=== PATIENT | female | born 1950 | race Caucasian/White ===

== ENCOUNTER 2018-02-17 05:55 | Outpatient (CLI) | payer MEDICARE ==
[~2018-02-17] VITALS: Ht 147.3 cm; Wt 84.8 kg
[~2018-02-17 05:55] MED LIST: ACHD5005 PO; ASP325T PO; CLOP75TA PO; DULO60CA6 PO; LEVO500T69 PO; LEVOTHY; LEVOTHYROXINE; LISI20TA PO; METO100T5 PO; METO50TA7 PO; PIOG45TA PO; PRAV40TA PO
[2018-02-18] MEDS ORDERED: LEVO175T5 PO (15:44)
[2018-02-18] MEDS ORDERED: AMLO5TAB2 PO (15:44)
[2018-02-18] MEDS ORDERED: IBUP-1780 PO (15:44)
[2018-02-18] MEDS ORDERED: GLIM2TAB PO (15:44)
[2018-02-18] MEDS ORDERED: LISI40TA PO (15:44)
[2018-02-18] MEDS ORDERED: METO100T12 PO (15:44)
[2018-02-18] MEDS ORDERED: DULO30CA48 PO (15:44)
[2018-02-18] MEDS ORDERED: LAMO25TA PO (15:44)
[2018-02-18] MEDS ORDERED: ROSU20TA30 PO (15:44)
[2018-02-18] MEDS ORDERED: MECL-106 PO (15:44)
[2018-03-19] MEDS ORDERED: LAMO100T PO (08:51)
[2018-03-19] MEDS ORDERED: LEVO125T6 PO (08:51)
== END 2018-02-18 15:54 ==
LOC: PREOP 05:55
PROVIDERS: ATTEND Specialist
DX: Z01.818 Encounter for other preprocedural examination (principal)

== ENCOUNTER 2018-02-20 08:31 | Day surgery (SDC) | payer MEDICARE, MEDICAID ==
[~2018-02-20] VITALS: Ht 147.3 cm; Wt 84.8 kg
[~2018-02-20 08:31] MED LIST changes: +AMLO5TAB2 PO; +DULO30CA48 PO; +GLIM2TAB PO; +IBUP-1780 PO; +LAMO25TA PO; +LEVO175T5 PO; +LISI40TA PO; +MECL-106 PO; +METO100T12 PO; +ROSU20TA30 PO
[2018-02-20 09:20] VITALS: BP 148/84
[2018-02-20] MEDS ORDERED: EPINEPHrine INJECTION 1 MG/ML AMP INJ ONE (09:30)
[2018-02-20] MEDS ORDERED: LIDOCAINE PF 1% 2 ML AMP IR PRN (09:30)
[2018-02-20] MEDS ORDERED: TIMOLOL MALEATE 0.5% 5 ML (TIMOPTIC) BTL OU PRN (09:30)
[2018-02-20] MEDS ORDERED: POVIDONE (BETADINE) OPHTH SOLN 5% 30 ML OP ONE (09:30)
[2018-02-20] MEDS ORDERED: VANCOMYCIN/BSS (COMPOUNDED) 10 MG/ML SYR OP ONE (09:30)
[2018-02-20] MEDS: TETRACAINE 0.5% OPHTH SOLN 4 ML BTL (SINGLE DOSE ONLY) OU PRN ×4 (09:37→10:03)
[2018-02-20] MEDS: CYCLOPENTOLATE 1% (CYCLOGYL) 2 ML DROPS OP SCH ×3 (09:43→10:04)
[2018-02-20] MEDS: PHENYLEPHRINE 10% OPHTH (NEO-SYN) 5 ML BTL OU SCH ×3 (09:43→10:03)
[2018-02-20] MEDS ORDERED: MIDAZOLAM 2 MG/2 ML (VERSED) VIAL ONE (09:56)
--- NOTE | 2018-02-20 10:03 | Ophthalmologist Pre-Op Note ---
Pre-Operative Progress Note H&P Reviewed The H&P was reviewed, patient examined and no changes noted. Date H&P Reviewed: February 20, 2018 Time H&P Reviewed: 10:03 Pre-Op Dx Cataract, Right Eye BOLIVAR SHINE MD February 20, 2018 10:03
[2018-02-20 10:46] VITALS: BP 149/79
--- NOTE | 2018-02-20 10:47 | Ophthalmology Operative Report ---
Cataract removal/placement IOL PREOPERATIVE DIAGNOSIS: Cataract Right Eye POSTOPERATIVE DIAGNOSIS: Cataract Right Eye PROCEDURE: Cataract removal and placement of posterior chamber implant, right eye SURGEON: Asif Shine ANESTHESIA: Topical with sedation COMPLICATIONS: None ESTIMATED BLOOD LOSS: Minimal DESCRIPTION OF PROCEDURE: After proper informed consent was obtained, the patient, a 67 female, was taken to the Operating Room and the right eye was anesthetized with tetracaine. They right eye was then prepped and draped in the usual manner. A wire lid speculum was placed. A paracentesis was made at the left hand position. Preservative free lidocaine was injected into the anterior chamber followed by viscoelastic. A clear corneal incision was made in the temporal position. A capsulorrhexis was preformed and the central nuclear and cortical material were removed. The posterior capsule was polished and Reese 24.0 SN6CWS IOL was placed into the capsular bag. The residual viscoelastic was aspirated and balanced saline solution was injected into the anterior chamber. 0.1ml of Vancomycin (10mg/0.1ml ) was injected into the anterior chamber. The wound was checked and found to be water tight. The patient tolerated the procedure well without complications. ASIF SHINE MD February 20, 2018 10:46
--- NOTE | 2018-02-20 11:10 | Anesthesia-General Post-Op ---
MAC Patient Condition Mental Status/LOC: Same as Preop Cardiovascular: Satisfactory Nausea/Vomiting: Absent Respiratory: Satisfactory Pain: Controlled Complications: Absent Post Op Complications Complications None Follow Up Care/Instructions Patient Instructions None needed. Anesthesiology Discharge Order Discharge Order Patient is doing well, no complaints, stable vital signs, no apparent adverse anesthesia problems. No complications reported per nursing. MIKE HOLLAND CRNA February 20, 2018 11:10
[2018-03-19] MEDS ORDERED: LEVO125T6 PO (08:51)
[2018-03-19] MEDS ORDERED: LAMO100T PO (08:51)
== END 2018-02-20 10:46 | disposition home or self-care (01) ==
LOC: SDC 08:31
PROVIDERS: ATTEND Specialist
DX: E11.36 Type 2 diabetes mellitus with diabetic cataract (principal); I10 Essential (primary) hypertension; J44.9 Chronic obstructive pulmonary disease, unspecified; Z79.84 Long term (current) use of oral hypoglycemic drugs; Z79.899 Other long term (current) drug therapy

== ENCOUNTER → 2018-03-18 | Outpatient (CLI) | payer MEDICARE, MEDICAID ==
[~2018-03-18] MED LIST changes: +LAMO100T PO; +LEVO125T6 PO
== END ==
LOC: PREOP 06:20
PROVIDERS: ATTEND Specialist
DX: Z01.818 Encounter for other preprocedural examination (principal)

== ENCOUNTER 2018-03-20 08:39 | Day surgery (SDC) | payer MEDICARE, MEDICAID ==
[~2018-03-20] VITALS: Ht 147.3 cm; Wt 84.8 kg
[2018-03-20 09:00] VITALS: BP 152/81
[2018-03-20] MEDS ORDERED: VANCOMYCIN/BSS (COMPOUNDED) 10 MG/ML SYR OP ONE (09:15)
[2018-03-20] MEDS ORDERED: EPINEPHrine INJECTION 1 MG/ML AMP INJ ONE (09:15)
[2018-03-20] MEDS ORDERED: POVIDONE (BETADINE) OPHTH SOLN 5% 30 ML OP ONE (09:15)
[2018-03-20] MEDS ORDERED: TIMOLOL MALEATE 0.5% 5 ML (TIMOPTIC) BTL OU PRN (09:15)
[2018-03-20] MEDS ORDERED: LIDOCAINE PF 1% 2 ML AMP IR PRN (09:15)
[2018-03-20] MEDS: TETRACAINE 0.5% OPHTH SOLN 4 ML BTL (SINGLE DOSE ONLY) OU PRN ×4 (09:28→09:38)
[2018-03-20] MEDS: CYCLOPENTOLATE 1% (CYCLOGYL) 2 ML DROPS OP SCH ×3 (09:32→09:38)
[2018-03-20] MEDS: PHENYLEPHRINE 10% OPHTH (NEO-SYN) 5 ML BTL OU SCH ×3 (09:32→09:38)
--- OUTSIDE RECORDS SUMMARY | 2018-03-20 09:45 | XMS REPORT ---
Author Author JS MALONEY [facility] Company[facility] Address [address] [place] [address] Care Team Providers Care Tubular Riveter Name Role Phone JS MALONEY Unavailable PROBLEMS Type Condition ICD9-CM Code GZO11-OE Code Onset Dates Condition Status SNOMED Code Problem Obesity (BMI 30.0-34.9) E66.9 Active 695173021813143 Problem Type 2 diabetes mellitus without complication, without long-term current use of insulin E11.9 Active 185241745 Problem Benign essential hypertension I10 Active 5213908 Problem Hyperthyroidism E05.90 Active 17759322 Problem Bipolar 1 disorder F31.9 Active 489220986 Problem Neuropathy G62.9 Active 718542238 Problem Recurrent falls R29.6 Active 559861277 Problem Other hyperlipidemia E78.4 Active 84127910 Problem Hypothyroidism, unspecified type E03.9 Active 70402862 Problem Chronic fatigue R53.82 Active 20134146 Problem 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 Active 08280479 ALLERGIES No Information ENCOUNTERS Encounter Location Date Diagnosis [facility] [address] [id number], [place] [id number] Mar, [facility] [address] [address] [id number], [place] [id number] Mar, [facility] [address] [id number], [place] [id number] February, [facility] [address] [id number], [place] [id number] February, [facility] [address] [id number], [place] [id number] February, [facility] [address] [address] [id number], [place] [id number] February, Benign essential hypertension I10 [facility] [address] [id number], [place] [id number] February, Recurrent falls R29.6 ; Bipolar 1 disorder F31.9 ; Benign essential hypertension I10 ; Type 2 diabetes mellitus without complication, without long-term current use of insulin E11.9 ; Neuropathy G62.9 and 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 [facility] [address] [id number], [place] 704967063 February, Hypothyroidism, unspecified type E03.9 [facility] [address] [id number], [place] [id number] February, 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 [facility] [address] [id number], [place] [id number] February, Hypothyroidism, unspecified type E03.9 ; Chronic fatigue R53.82 and Impacted cerumen of right ear H61.21 [facility] [address] [id number], [place] [id number] February, [facility] [address] [id number], [place] [address]01438802 Jan, [facility] [address] [id number], [place] [id number] Jan, [facility] [address] [id number], [place] [id number] Jan, 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 [facility] [address] [id number], [place] 617659540 Jan, Recurrent falls R29.6 ; Type 2 diabetes mellitus without complication, without long-term current use of insulin E11.9 ; Hypothyroidism, unspecified type E03.9 ; Bipolar 1 disorder F31.9 ; Neuropathy G62.9 and Fatigue , unspecified type R53.83 [facility] [address] [facility] [id number] [place] [address] Jan, [facility] [address] [id number], [place] [id number] Jan, [facility] [address] [id number] [place] [address] Jan, Impacted cerumen, left ear H61.[address] [facility] [address] [id number] [place] [address]82[address] Jan, 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 [facility] [address] [id number], [place] [id number] Dec, Type 2 diabetes mellitus without complication, without long-term current use of insulin E11.9 ; Benign essential hypertension I10 ; Bipolar 1 disorder F31.9 and Other hyperlipidemia E78.[address] [facility] [address] [id number], [place] [id number] Dec, [facility] [address] [id number], [place] 426598855 Dec, Bipolar 1 disorder F31.9 ; Benign essential hypertension I10 and Other hyperlipidemia E78.[address] [facility] [address] [id number], [place] [id number] Nov, Bipolar 1 disorder F31.[address] [facility] [address] [id number], [place] [address]352274 Nov, [facility] [address] [id number], [place] 608201977 Nov, Acute recurrent maxillary sinusitis J01.01 and Benign essential hypertension I10 [facility] [address] [id number], [place] 550216355 Oct, Body aches R52 and Influenza A J10.[address] [facility] [address] [id number], [place] 711453657 Oct, [facility] [address] [id number], [place] 870768588 Oct, [facility] [address] [id number], [place] [id number] Sep, [place] [address], [place] [address] Sep, [place] [address] [place] [id number] [place] [address] Sep, [address] [id number], [place] [address] Sep, Other hyperlipidemia E78.4 and Hypothyroidism, unspecified type E03.[address] [id number], [place] 863947308 Sep, Benign essential hypertension I10 [address] [id number], [place] [address] Sep, [address] [id number], [place] 488599256 Sep, Type 2 diabetes mellitus without complication, without long-term current use of insulin E11.9 ; Hypothyroidism, unspecified type E03.9 ; Bipolar 1 disorder F31.9 ; Obesity (BMI 30.0-34.9) E66.9 ; Benign essential hypertension I10 and Other hyperlipidemia E78.4 [place] [address] [place] [address] Aug, [place] [address] [place] [id number] [place] [address] Aug, [place] [address] [place] [address] Jul, IMMUNIZATIONS No Known Immunizations SOCIAL HISTORY Never Assessed REASON FOR VISIT bp cuff script PLAN OF CARE VITAL SIGNS MEDICATIONS Medication Instructions Dosage Frequency Start Date End Date Duration Status Blood Pressure Kit - as directed Sep, lifetime Active RESULTS No Results PROCEDURES No Known procedures INSTRUCTIONS MEDICATIONS ADMINISTERED No Known Medications MEDICAL (GENERAL) HISTORY Type Description Date Medical History COPD (chronic obstructive pulmonary disease) Medical History HTN (hypertension) Medical History Bipolar 1 disorder Medical History Neuropathy Medical History Type II Diabetes- Metformin Medical History cleft palate Surgical History section Surgical History vein stripped in left leg 2000 Hospitalization History HTN- [facility] 09/2017
--- OUTSIDE RECORDS SUMMARY | 2018-03-20 09:45 | XMS REPORT ---
Author Author JS MALONEY [facility] Address [address] [place] [address] Care Team Providers Care Life Teacher Name Role Phone JS MALONEY Unavailable PROBLEMS Type Condition ICD9-CM Code WIF11-WV Code Onset Dates Condition Status SNOMED Code Problem Obesity (BMI 30.0-34.9) E66.9 Active [id number] Problem Type 2 diabetes mellitus without complication, without long-term current use of insulin E11.9 Active 735674267 Problem Benign essential hypertension I10 Active 0576834 Problem Hyperthyroidism E05.90 Active 03663215 Problem Bipolar 1 disorder F31.9 Active 842189497 Problem Neuropathy G62.9 Active 217422853 Problem Recurrent falls R29.6 Active 723891845 Problem Other hyperlipidemia E78.4 Active 09221498 Problem Hypothyroidism, unspecified type E03.9 Active 53263461 Problem Chronic fatigue R53.82 Active 93753776 Problem 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 Active 49385218 ALLERGIES Substance Reaction Event Type Date Status Excedrin Migraine Unknown Drug Allergy Sep, Active Aspirin rash Drug Allergy Sep, Active ENCOUNTERS Encounter Location Date Diagnosis [facility] [address] [id number] [place]ENTER[place] [id number] Mar, [email or web address] [address] [id number] CENTER, [place] [id number] Mar, [facility] [address] [id number] CENTER[place] 9790594[address] February, [facility] [address] [id number] CENTER, [place] [id number] February, [facility] [address] [id number] CENTER[place] [id number] February, [facility] [address] [id number] CENTER, [place] 925524687 February, Benign essential hypertension I10 [facility] [address] [id number] CENTER[place] 959170076 February, Recurrent falls R29.6 ; Bipolar 1 disorder F31.9 ; Benign essential hypertension I10 ; Type 2 diabetes mellitus without complication, without long-term current use of insulin E11.9 ; Neuropathy G62.9 and 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 [facility] [address] [id number] CENTER[place] [id number] February, Hypothyroidism, unspecified type E03.9 [facility] [id number] CENTER[place] [id number] February, 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 [facility] [address] [place] [address] AVE [id number] CENTER[place] 426008858 February, Hypothyroidism, unspecified type E03.9 ; Chronic fatigue R53.82 and Impacted cerumen of right ear H61.21 [facility] [address] [id number] CENTER, [place] [id number] February, [facility] [address] [id number] CENTER[place] [id number] Jan, [facility] [address] [facility] [address] [id number] [place]ENTER[place] [id number] Jan, [facility] [address] [id number] [place]ENTER[place] [id number] Jan, 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 [facility] [address] [place] [address] AVE [id number] CENTER, [place] 365376796 Jan, Recurrent falls R29.6 ; Type 2 diabetes mellitus without complication, without long-term current use of insulin E11.9 ; Hypothyroidism, unspecified type E03.9 ; Bipolar 1 disorder F31.9 ; Neuropathy G62.9 and Fatigue , unspecified type R53.83 [facility] [address] [facility] [id number], [place] 85027154- [address] Jan, [facility] [address] [id number] CENTER, [place] [id number] Jan, [facility] [address] [id number] [place]ENTER[place] 718391400 Jan, Impacted cerumen, left ear H61.[address] [facility] [address] [id number] CENTER, [place] [id number] Jan, 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 [facility] [address] [id number] CENTER[place] 898882103 Dec, Type 2 diabetes mellitus without complication, without long-term current use of insulin E11.9 ; Benign essential hypertension I10 ; Bipolar 1 disorder F31.9 and Other hyperlipidemia E78.[address] [facility] [address] [id number] CENTER[place] 037581086 Dec, [facility] [address] [id number] [place]ENTER[place] [id number] Dec, Bipolar 1 disorder F31.9 ; Benign essential hypertension I10 and Other hyperlipidemia E78.4 [facility] [address] [id number] CENTER, [place] [id number] Nov, Bipolar 1 disorder F31.9 [facility] [address] [id number] [place]ENTER[place] [id number] Nov, [facility] [address] [id number] [place]ENTER[place] 413615129 Nov, Acute recurrent maxillary sinusitis J01.01 and Benign essential hypertension I10 [facility] [address] [id number] [place]ENTER[place] [id number] Oct, Body aches R52 and Influenza A J10.[address] [facility] [address] [id number] [place]ENTER, [place] 638224631 Oct, [facility] [address] [id number] [place]ENTER[place] 801343312 Oct, [facility] [address] [id number] CENTER[place] 797641925 Sep, [place] [address]65100[place], [place] [address] Sep, [place] [address]00565100[place], [place] [address] Sep, [address] [id number] CENTER[place] 693178131 Sep, Other hyperlipidemia E78.4 and Hypothyroidism, unspecified type E03.[address] [id number] CENTER, [place] [id number] Sep, Benign essential hypertension I10 [address] [id number] CENTER, [place] 572740357 Sep, [address] [id number] CENTER[place] [id number] Sep, Type 2 diabetes mellitus without complication, without long-term current use of insulin E11.9 ; Hypothyroidism, unspecified type E03.9 ; Bipolar 1 disorder F31.9 ; Obesity (BMI 30.0-34.9) E66.9 ; Benign essential hypertension I10 and Other hyperlipidemia E78.4 [place] [address]65100[place], [place] [address] Aug, [place] [address]65100[place], [place] [address] Aug, [place] [address] [place] [id number] [place] [address] Jul, IMMUNIZATIONS No Known Immunizations SOCIAL HISTORY Never Assessed REASON FOR VISIT Medication refill request PLAN OF CARE VITAL SIGNS MEDICATIONS Medication Instructions Dosage Frequency Start Date End Date Duration Status Meclizine HCl 25 MG Orally Once a day 1 tablet as needed 24h Sep, Active RESULTS No Results PROCEDURES No Known procedures INSTRUCTIONS MEDICATIONS ADMINISTERED No Known Medications MEDICAL (GENERAL) HISTORY Type Description Date Medical History COPD (chronic obstructive pulmonary disease) Medical History HTN (hypertension) Medical History Bipolar 1 disorder Medical History Neuropathy Medical History Type II Diabetes- Metformin Medical History cleft palate Surgical History section Surgical History vein stripped in left leg 2000 Hospitalization History HTN- [facility] 09/2017
--- OUTSIDE RECORDS SUMMARY | 2018-03-20 09:45 | XMS REPORT ---
Author Author JS MALONEY [facility] Address [address] [place] [address] Care Team Providers Care Timber Sprinkler Name Role Phone JS MALONEY Unavailable PROBLEMS Type Condition ICD9-CM Code RYR68-OF Code Onset Dates Condition Status SNOMED Code Problem Obesity (BMI 30.0-34.9) E66.9 Active [id number] Problem Type 2 diabetes mellitus without complication, without long-term current use of insulin E11.9 Active 056587764 Problem Benign essential hypertension I10 Active 9230726 Problem Hyperthyroidism E05.90 Active 82813090 Problem Bipolar 1 disorder F31.9 Active 658695621 Problem Neuropathy G62.9 Active 481239299 Problem Recurrent falls R29.6 Active 967989453 Problem Other hyperlipidemia E78.4 Active 13495291 Problem Hypothyroidism, unspecified type E03.9 Active 28282054 Problem Chronic fatigue R53.82 Active 47657038 Problem 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 Active 83749900 ALLERGIES Substance Reaction Event Type Date Status Excedrin Migraine Unknown Drug Allergy Sep, Active Aspirin rash Drug Allergy Sep, Active ENCOUNTERS Encounter Location Date Diagnosis [facility] [address] [id number] R[place] [id number] Mar, [facility] [address] [id number] [place], [place] [id number] Mar, [facility] [address] [address] [id number] RIVER, [place] 744763917 February, [facility] [address] [id number] RIVER, [place] 877723095 February, [facility] [address] [address] [id number] RIVER, [place] 297939697 February, [facility] [address] [id number] RIVER, [place] 738454832 February, Benign essential hypertension I10 [facility] [address] [id number] RIVER, [place] 970380470 February, Recurrent falls R29.6 ; Bipolar 1 disorder F31.9 ; Benign essential hypertension I10 ; Type 2 diabetes mellitus without complication, without long-term current use of insulin E11.9 ; Neuropathy G62.9 and 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 [facility] [address] [address] [id number] RIVER, [place] 789865017 February, Hypothyroidism, unspecified type E03.9 [facility] [address] [id number] RIVER, [place] [id number] February, 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 [facility] [address] [place] [address] AVE [id number] RIVER, [place] [id number] February, Hypothyroidism, unspecified type E03.9 ; Chronic fatigue R53.82 and Impacted cerumen of right ear H61.21 [facility] [address] [address] [id number] RIVER, [place] 712871791 February, [facility] [address] [id number] RIVER, [place] 455158057 Jan, [facility] [address] [facility] [address] [id number] RIVER, [place] [id number] Jan, [facility] [address] [address] [id number] RIVER, [place] 480448739 Jan, 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 [facility] [address] [place] [address] AVE [id number] RIVER, [place] 653344142 Jan, Recurrent falls R29.6 ; Type 2 diabetes mellitus without complication, without long-term current use of insulin E11.9 ; Hypothyroidism, unspecified type E03.9 ; Bipolar 1 disorder F31.9 ; Neuropathy G62.9 and Fatigue , unspecified type R53.83 [facility] [address] [facility] [id number] [place] [address]18[address] Jan, [facility] [address] [id number] RIVER, [place] 890942838 Jan, [facility] [address] [id number] [place]IVER, [place] 655180734 Jan, Impacted cerumen, left ear H61.[address] [facility] [address] [id number] RIVER, [place] 859345200 Jan, 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 [facility] [address] [id number] RIVER, [place] 397367763 Dec, Type 2 diabetes mellitus without complication, without long-term current use of insulin E11.9 ; Benign essential hypertension I10 ; Bipolar 1 disorder F31.9 and Other hyperlipidemia E78.[address] [facility] [address] [id number] RIVER, [place] [id number] Dec, [facility] [address] [id number] RIVER, [place] 795607941 Dec, Bipolar 1 disorder F31.9 ; Benign essential hypertension I10 and Other hyperlipidemia E78.4 [facility] [address] [id number] [place]IVER, [place] [id number] Nov, Bipolar 1 disorder F31.9 [facility] [address] [id number] RIVER, [place] [id number] Nov, [facility] [address] [id number] RIVER, [place] 648434484 Nov, Acute recurrent maxillary sinusitis J01.01 and Benign essential hypertension I10 [facility] [address] [id number] RIVER, [place] 559494245 Oct, Body aches R52 and Influenza A J10.[address] [facility] [address] [id number] RIVER, [place] 053160168 Oct, [facility] [address] [id number] RIVER, [place] 937322362 Oct, [facility] [address] [id number] RIVER, [place] 572249342 Sep, [place] [address]00565100[place] [address] Sep, [place] [address]00565100[place] [address] Sep, [address] [id number] RIVER, [place] 312158261 Sep, Other hyperlipidemia E78.4 and Hypothyroidism, unspecified type E03.[address] [id number] RIVER, [place] 888403679 Sep, Benign essential hypertension I10 [address] [id number] [place] [id number] Sep, [address] [id number] RIVER, [place] 112912428 Sep, Type 2 diabetes mellitus without complication, without long-term current use of insulin E11.9 ; Hypothyroidism, unspecified type E03.9 ; Bipolar 1 disorder F31.9 ; Obesity (BMI 30.0-34.9) E66.9 ; Benign essential hypertension I10 and Other hyperlipidemia E78.4 [place] [address]00565100[place] [address] Aug, [place] [address] [place] [address]- 2033 Aug, [place] [address] [place] [id number] [place] [address] Jul, IMMUNIZATIONS No Known Immunizations SOCIAL HISTORY Never Assessed REASON FOR VISIT Establish Care, recently moved to [place]. Previously seen in [place], [place] at [facility]. seen at [facility] last week for HTN. Filipe FLORENCE PLAN OF CARE Activity Details Follow Up 6 Weeks Reason:bipolar f/u ( 3 months DM f/u) VITAL SIGNS Height 60 in 2017-09-11 Weight 178.3 lbs 2017-09-11 Temperature 98.6 degrees Fahrenheit 2017-09-11 Heart Rate 80 bpm 2017-09-11 Respiratory Rate 20 2017-09-11 Oximetry 96 % 2017-09-11 BMI 34.82 kg/m2 2017-09-11 Blood pressure systolic 180 mmHg 2017-09-11 Blood pressure diastolic 80 mmHg 2017-09-11 MEDICATIONS Medication Instructions Dosage Frequency Start Date End Date Duration Status Cymbalta 30 MG Orally Once a day 1 capsule 24h Active Oxygen 2 L/NC Active Combivent Respimat 20-100 MCG/ACT Inhalation Four times a day 1 puff 6h Active Levothyroxine Sodium 125 MCG Orally Once a day 1 tablet on an empty stomach in the morning 24h Active ProAir HFA 108 (90 Base) MCG/ACT Inhalation every 6 hrs 2 puffs as needed 6h Active Lisinopril 20 mg Orally Once a day 1 tablet 24h Sep, Active Lamictal 25 MG Orally daily x 1 week, then 1 tablet twice daily 1 tablet Sep, Active Lipitor 80 MG Orally Once a day 1 tablet 24h Active Ibuprofen 800 MG Orally 2 times a day PRN 1 tablet with food or milk as needed Active Metoprolol Tartrate 100 mg Orally Twice a day 1 tablet with food 12h Sep 90 days Active Amaryl 2 MG Orally Once a day 1 tablet with breakfast or the first main meal of the day 24h Sep, Active RESULTS No Results PROCEDURES Procedure Date Ordered Result Body Site GLYCATED HEMOGLOBIN TEST Sep 11, 2017 [facility] VISIT NEW PATIENT Sep 11, 2017 VENIPUNCT, ROUTINE* Sep 11, 2017 INSTRUCTIONS MEDICATIONS ADMINISTERED No Known Medications MEDICAL (GENERAL) HISTORY Type Description Date Medical History COPD (chronic obstructive pulmonary disease) Medical History HTN (hypertension) Medical History Bipolar 1 disorder Medical History Neuropathy Medical History Type II Diabetes- Metformin Medical History cleft palate Surgical History section Surgical History vein stripped in left leg 2000 Hospitalization History HTN- [facility] 09/2017
--- OUTSIDE RECORDS SUMMARY | 2018-03-20 09:46 | XMS REPORT ---
Author Author JS MALONEY [facility] System[facility] LimitedVAZQUEZ Address [address] [place] [address] Care Team Providers Care Resolution Expert Name Role Phone JS MALONEY Unavailable PROBLEMS Type Condition ICD9-CM Code MMN80-TI Code Onset Dates Condition Status SNOMED Code Problem Obesity (BMI 30.0-34.9) E66.9 Active [id number] Problem Type 2 diabetes mellitus without complication, without long-term current use of insulin E11.9 Active 571752719 Problem Benign essential hypertension I10 Active 8354723 Problem Hyperthyroidism E05.90 Active 99659286 Problem Bipolar 1 disorder F31.9 Active 126157793 Problem Neuropathy G62.9 Active 091234618 Problem Recurrent falls R29.6 Active 115122649 Problem Other hyperlipidemia E78.4 Active 93430640 Problem Hypothyroidism, unspecified type E03.9 Active 15489818 Problem Chronic fatigue R53.82 Active 10700135 Problem 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 Active 79766149 ALLERGIES No Information ENCOUNTERS Encounter Location Date Diagnosis [facility] [address] [id number], [place] [id number] Mar, [facility] [address] [id number], [place] [id number] Mar, [facility] [id number], [place] [id number] February, [facility] [address] [id number], [place] [id number] February, [facility] [address] [id number], [place] [id number] February, [facility] [address] [id number], [place] [id number] February, Benign essential hypertension I[address] [facility] [address] [id number], [place] [id number] February, Recurrent falls R29.6 ; Bipolar 1 disorder F31.9 ; Benign essential hypertension I10 ; Type 2 diabetes mellitus without complication, without long-term current use of insulin E11.9 ; Neuropathy G62.9 and 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 [facility] [address] [id number], [place] 755203475 February, Hypothyroidism, unspecified type E03.9 [facility] [address] [id number], [place] 505721697 February, 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 [facility] [address] [id number], [place] [id number] February, Hypothyroidism, unspecified type E03.9 ; Chronic fatigue R53.82 and Impacted cerumen of right ear H61.21 [facility] [id number], [place] [id number] February, [facility] [address] [id number], [place] [id number] Jan, [facility] [address] [id number], [place] [id number] Jan, [facility] [address] [id number], [place] [id number] Jan, 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 [facility] [address] [id number], [place] [id number] Jan, Recurrent falls R29.6 ; Type 2 diabetes mellitus without complication, without long-term current use of insulin E11.9 ; Hypothyroidism, unspecified type E03.9 ; Bipolar 1 disorder F31.9 ; Neuropathy G62.9 and Fatigue , unspecified type R53.83 [facility] [address] [facility] [id number] [place] [address] Jan, [facility] [id number], [place] [id number] Jan, [facility] [address] [id number] [place], [place] [id number] Jan, Impacted cerumen, left ear H61.[address] [facility] [address] [id number] [place] 833167215 Jan, 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 [facility] [address] [id number], [place] 990968060 Dec, Type 2 diabetes mellitus without complication, without long-term current use of insulin E11.9 ; Benign essential hypertension I10 ; Bipolar 1 disorder F31.9 and Other hyperlipidemia E78.[address] [facility] [address] [id number], [place] 697198685 Dec, [facility] [address] [id number], [place] [id number] Dec, Bipolar 1 disorder F31.9 ; Benign essential hypertension I10 and Other hyperlipidemia E78.[address] [facility] [address] [id number], [place] 345270499 Nov, Bipolar 1 disorder F31.[address] [facility] [address] [id number], [place] [id number] Nov, [facility] [id number], [place] [id number] Nov, Acute recurrent maxillary sinusitis J01.01 and Benign essential hypertension I10 [facility] [address] [id number], [place] [id number] Oct, Body aches R52 and Influenza A J10.[address] [facility] [address] [id number], [place] [id number] Oct, [facility] [address] [address] [id number], [place] 845604391 Oct, [facility] [id number], [place] [id number] Sep, [facility] [address] [address] Sep, [facility] [address] [place] [id number] [place] [address] Sep, [address] [id number], [place] 637009842 Sep, Other hyperlipidemia E78.4 and Hypothyroidism, unspecified type E03.[address] [id number], [place] 271065023 Sep, Benign essential hypertension I10 [address] [id number], [place] [id number] Sep, [address] [id number], [place] 742167373 Sep, Type 2 diabetes mellitus without complication, without long-term current use of insulin E11.9 ; Hypothyroidism, unspecified type E03.9 ; Bipolar 1 disorder F31.9 ; Obesity (BMI 30.0-34.9) E66.9 ; Benign essential hypertension I10 and Other hyperlipidemia E78.4 [place] [id number] [place] [address] Aug, [place] [address] [place] [id number] [place] [address] 5179 Aug, [place] [address] [place] [address]- [address]14 Jul, IMMUNIZATIONS No Known Immunizations SOCIAL HISTORY Never Assessed REASON FOR VISIT Requests return call PLAN OF CARE VITAL SIGNS MEDICATIONS Unknown Medications RESULTS No Results PROCEDURES No Known procedures INSTRUCTIONS MEDICATIONS ADMINISTERED No Known Medications MEDICAL (GENERAL) HISTORY Type Description Date Medical History COPD (chronic obstructive pulmonary disease) Medical History HTN (hypertension) Medical History Bipolar 1 disorder Medical History Neuropathy Medical History Type II Diabetes- Metformin Medical History cleft palate Surgical History section Surgical History vein stripped in left leg 2000 Hospitalization History HTN- [facility] 09/2017
--- OUTSIDE RECORDS SUMMARY | 2018-03-20 09:46 | XMS REPORT ---
Author Author WESTON NARANJO [facility] Address Unknown Phone Unavailable Care Team Providers Care Acid Cleaner Name Role Phone WESTON NARANJO Unavailable Unavailable PROBLEMS Type Condition ICD9-CM Code TID18-EC Code Onset Dates Condition Status SNOMED Code Problem Obesity (BMI 30.0-34.9) E66.9 Active [id number] Problem Type 2 diabetes mellitus without complication, without long-term current use of insulin E11.9 Active 597383866 Problem Benign essential hypertension I10 Active 7740812 Problem Hyperthyroidism E05.90 Active 99367209 Problem Bipolar 1 disorder F31.9 Active 812389912 Problem Neuropathy G62.9 Active 363362717 Problem Recurrent falls R29.6 Active 929746590 Problem Other hyperlipidemia E78.4 Active 72230558 Problem Hypothyroidism, unspecified type E03.9 Active 74821303 Problem Chronic fatigue R53.82 Active 41792364 Problem 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 Active 81751029 ALLERGIES No Information ENCOUNTERS Encounter Location Date Diagnosis [facility] [address] [id number], [place] [id number] Mar, [facility] [address] [id number], [place] [id number] Mar, [facility] [address] [id number], [place] [id number] February, [facility] [address] [id number], [place] [id number] February, [facility] [address] [address] [id number], [place] [id number] February, [facility] [address] [address] [id number], [place] 956704851 February, Benign essential hypertension I10 [facility] [address] [address] [id number], [place] 590240521 February, Recurrent falls R29.6 ; Bipolar 1 disorder F31.9 ; Benign essential hypertension I10 ; Type 2 diabetes mellitus without complication, without long-term current use of insulin E11.9 ; Neuropathy G62.9 and 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 [facility] [address] [id number], [place] [id number] February, Hypothyroidism, unspecified type E03.9 [facility] [address] [address] [id number], [place] 489655000 February, 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 [facility] [address] [id number], [place] [id number] Jan, Recurrent falls R29.6 ; Type 2 diabetes mellitus without complication, without long-term current use of insulin E11.9 ; Hypothyroidism, unspecified type E03.9 ; Bipolar 1 disorder F31.9 ; Neuropathy G62.9 and Fatigue , unspecified type R53.83 [facility] [address] [facility] [id number], [place] [address]8784481- [address] Jan, [facility] [address] [address] [id number], [place] [id number] Jan, [facility] [address] [address] [id number], [place] [id number] Jan, Impacted cerumen, left ear H61.22 [facility] [address] [address] [id number], [place] [id number] Jan, 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 [facility] [address] [id number], [place] 806162759 Dec, Type 2 diabetes mellitus without complication, without long-term current use of insulin E11.9 ; Benign essential hypertension I10 ; Bipolar 1 disorder F31.9 and Other hyperlipidemia E78.4 [facility] [address] [address] [id number], [place] [id number] Dec, [facility] [address] [id number], [place] [id number] Dec, Bipolar 1 disorder F31.9 ; Benign essential hypertension I10 and Other hyperlipidemia E78.4 [facility] [address] [address] [id number], [place] [id number] Nov, Bipolar 1 disorder F31.9 [facility] [address] [address] [id number], [place] [id number] Nov, [facility] [address] [id number], [place] 924546693 Nov, Acute recurrent maxillary sinusitis J01.01 and Benign essential hypertension I10 [facility] [address] [id number], [place] [id number] Oct, Body aches R52 and Influenza A J10.1 [facility] [address] [id number], [place] [id number] Oct, [facility] [address] [id number], [place] [id number] Oct, [facility] [address] [id number], [place] [id number] Sep, [facility] [address] [facility] [id number], [place] 22053522- [address] Sep, [facility] [address] [place] [id number], [place] [address] Sep, [address] [id number], [place] [id number] Sep, Other hyperlipidemia E78.4 and Hypothyroidism, unspecified type E03.[address] [id number], [place] 313055092 Sep, Benign essential hypertension I10 [address] [id number], [place] [id number] Sep, [address] [id number], [place] 649029516 Sep, Type 2 diabetes mellitus without complication, without long-term current use of insulin E11.9 ; Hypothyroidism, unspecified type E03.9 ; Bipolar 1 disorder F31.9 ; Obesity (BMI 30.0-34.9) E66.9 ; Benign essential hypertension I10 and Other hyperlipidemia E78.4 [place] [address]00565100[place], [place] [address] Aug, [place] [address] [place] [id number] [place] [address] Aug, [place] [address]00565100[place], [place] [address] Jul, IMMUNIZATIONS No Known Immunizations SOCIAL HISTORY Never Assessed REASON FOR VISIT [facility] Contact PLAN OF CARE Activity Details Follow Up Will likely use services in near future. Reason:hx. of bipolar disorder VITAL SIGNS MEDICATIONS Unknown Medications RESULTS No [...] in left leg 2000 Hospitalization History HTN- [facility] 09/2017
--- OUTSIDE RECORDS SUMMARY | 2018-03-20 09:46 | XMS REPORT ---
Author Author JS MALONEY [facility] Address [address] [place] [address] Care Team Providers Care Staff Anesthetist Name Role Phone JS MALONEY Unavailable PROBLEMS Type Condition ICD9-CM Code YEP30-XI Code Onset Dates Condition Status SNOMED Code Problem Obesity (BMI 30.0-34.9) E66.9 Active [id number] Problem Type 2 diabetes mellitus without complication, without long-term current use of insulin E11.9 Active 166738903 Problem Benign essential hypertension I10 Active 6089978 Problem Hyperthyroidism E05.90 Active 88552884 Problem Bipolar 1 disorder F31.9 Active 892014087 Problem Neuropathy G62.9 Active 894536253 Problem Recurrent falls R29.6 Active 253312123 Problem Other hyperlipidemia E78.4 Active 42294184 Problem Hypothyroidism, unspecified type E03.9 Active 30280768 Problem Chronic fatigue R53.82 Active 02800809 Problem 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 Active 20360845 ALLERGIES No Information ENCOUNTERS Encounter Location Date Diagnosis [facility] [address] [address] [id number], [place] [id number] Mar, [facility] [address] [id number], [place] 585888976 Mar, [facility] [address] [id number], [place] [id number] February, [facility] [address] [id number], [place] 559035140 February, [facility] [address] [id number], [place] 730937107 February, [facility] [address] [id number], [place] 045353083 February, Benign essential hypertension I[address] [facility] [address] [id number], [place] 115480143 February, Recurrent falls R29.6 ; Bipolar 1 disorder F31.9 ; Benign essential hypertension I10 ; Type 2 diabetes mellitus without complication, without long-term current use of insulin E11.9 ; Neuropathy G62.9 and 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 [facility] [address] [id number], [place] [id number] February, Hypothyroidism, unspecified type E03.9 [facility] [address] [id number], [place] 588391832 February, 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 [facility] [address] [address] [id number], [place] [id number] February, Hypothyroidism, unspecified type E03.9 ; Chronic fatigue R53.82 and Impacted cerumen of right ear H61.21 [facility] [address] [address] [id number], [place] [id number] February, [facility] [address] [id number], [place] [id number] Jan, [facility] [address] [id number], [place] 140510299 Jan, [facility] [address] [id number], [place] [id number] Jan, 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 [facility] [address] [address] [id number], [place] 928866086 Jan, Recurrent falls R29.6 ; Type 2 diabetes mellitus without complication, without long-term current use of insulin E11.9 ; Hypothyroidism, unspecified type E03.9 ; Bipolar 1 disorder F31.9 ; Neuropathy G62.9 and Fatigue , unspecified type R53.83 [facility] [place] [address] [facility] [id number] [place] [address] Jan, [facility] [address] [id number], [place] [id number] Jan, [facility] [address] [id number] [place] [id number] Jan, Impacted cerumen, left ear H61.[address] [facility] [address] [id number] [place] 695268027 Jan, 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 [facility] [address] [id number], [place] [id number] Dec, Type 2 diabetes mellitus without complication, without long-term current use of insulin E11.9 ; Benign essential hypertension I10 ; Bipolar 1 disorder F31.9 and Other hyperlipidemia E78.[address] [facility] [address] [id number], [place] 750382724 Dec, [facility] [address] [id number], [place] [id number] Dec, Bipolar 1 disorder F31.9 ; Benign essential hypertension I10 and Other hyperlipidemia E78.[address] [facility] [address] [id number], [place] 987669761 Nov, Bipolar 1 disorder F31.[address] [facility] [address] [id number], [place] 405846497 Nov, [facility] [id number], [place] 532828872 Nov, Acute recurrent maxillary sinusitis J01.01 and Benign essential hypertension I10 [facility] [address] [id number], [place] 504921321 Oct, Body aches R52 and Influenza A J10.[address] [facility] [address] [id number], [place] [id number] Oct, [facility] [address] [id number], [place] 328994086 Oct, [facility] [address] [address] [id number], [place] 037692316 Sep, [place] [address]00565100[place], [place] [address] Sep, [place] [address] [place] [id number] [place] [address]- [address]67 Sep, [address] [id number], [place] 767106721 Sep, Other hyperlipidemia E78.4 and Hypothyroidism, unspecified type E03.[address] [id number], [place] 774145959 Sep, Benign essential hypertension I10 [address] [id number], [place] [id number] Sep, [address] [id number], [place] 780503431 Sep, Type 2 diabetes mellitus without complication, without long-term current use of insulin E11.9 ; Hypothyroidism, unspecified type E03.9 ; Bipolar 1 disorder F31.9 ; Obesity (BMI 30.0-34.9) E66.9 ; Benign essential hypertension I10 and Other hyperlipidemia E78.4 [place] [address] [place] [id number] [place] [address]- [address]907 Aug, [place] [address] [place] [id number] [place] [address]- 7897 Aug, [place] [address] [place] [id number] [place] [address]- 6601 Jul, IMMUNIZATIONS No Known Immunizations SOCIAL HISTORY Never Assessed REASON FOR VISIT med PLAN OF CARE VITAL SIGNS MEDICATIONS Medication Instructions Dosage Frequency Start Date End Date Duration Status Ibuprofen 800 MG Orally 2 times a day PRN 1 tablet with food or milk as needed Nov, 30 days Active Levothyroxine Sodium 137 MCG Orally Once a day 1 tablet on an empty stomach in the morning 24h 90 days Active Crestor 20 mg Orally Once a day 1 tablet 24h Sep, 90 days Active RESULTS No Results PROCEDURES No Known procedures INSTRUCTIONS MEDICATIONS ADMINISTERED No Known Medications MEDICAL (GENERAL) HISTORY Type Description Date Medical History COPD (chronic obstructive pulmonary disease) Medical History HTN (hypertension) Medical History Bipolar 1 disorder Medical History Neuropathy Medical History Type II Diabetes- Metformin Medical History cleft palate Surgical History section Surgical History vein stripped in left leg 2000 Hospitalization History HTN- [facility] 09/2017
--- OUTSIDE RECORDS SUMMARY | 2018-03-20 09:46 | XMS REPORT ---
Author Author JS [facility] Address [address] [place] [address] Care Team Providers Care Care Consultant Name Role Phone JS MALONEY Unavailable PROBLEMS Type Condition ICD9-CM Code XOA74-JU Code Onset Dates Condition Status SNOMED Code Problem Obesity (BMI 30.0-34.9) E66.9 Active 108568497311219 Problem Type 2 diabetes mellitus without complication, without long-term current use of insulin E11.9 Active 800827826 Problem Benign essential hypertension I10 Active 4108889 Problem Hyperthyroidism E05.90 Active 16985326 Problem Bipolar 1 disorder F31.9 Active 768848757 Problem Neuropathy G62.9 Active 612215007 Problem Recurrent falls R29.6 Active 490027083 Problem Other hyperlipidemia E78.4 Active 40631316 Problem Hypothyroidism, unspecified type E03.9 Active 77630718 Problem Chronic fatigue R53.82 Active 54550850 Problem 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 Active 97202323 ALLERGIES No Information ENCOUNTERS Encounter Location Date Diagnosis [facility] [address] [id number][place] [id number] Mar, [facility] [address] [id number], [place] [id number] Mar, [facility] [address] [id number][place] [id number] February, [facility] [address] [id number], [place] [id number] February, [facility] [address] [id number][place] [id number] February, [facility] [address] [id number][place] [id number] February, Benign essential hypertension I10 [facility] [address] [id number], [place] [id number] February, Recurrent falls R29.6 ; Bipolar 1 disorder F31.9 ; Benign essential hypertension I10 ; Type 2 diabetes mellitus without complication, without long-term current use of insulin E11.9 ; Neuropathy G62.9 and 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 [facility] [address] [id number][place] [id number] February, Hypothyroidism, unspecified type E03.9 [facility] [address] [id number], [place] [id number] February, 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 [facility] [address] [id number], [place] [id number] February, Hypothyroidism, unspecified type E03.9 ; Chronic fatigue R53.82 and Impacted cerumen of right ear H61.21 [facility] [address] [id number], [place] [id number] February, [facility] [address] [id number], [place] [id number] Jan, [facility] [address] [id number], [place] [id number] Jan, [facility] [address] [id number], [place] [id number] Jan, 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 [facility] [address] [id number], [place] [id number] Jan, Recurrent falls R29.6 ; Type 2 diabetes mellitus without complication, without long-term current use of insulin E11.9 ; Hypothyroidism, unspecified type E03.9 ; Bipolar 1 disorder F31.9 ; Neuropathy G62.9 and Fatigue , unspecified type R53.83 [facility] [address] [facility] [id number] [place] [address] Jan, [facility] [address] [id number][place] [id number] Jan, [facility] [address] [id number] [place] [id number] Jan, Impacted cerumen, left ear H61.[address] [facility] [address] [id number] [place] [id number] Jan, 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 [facility] [address] [id number], [place] [id number] Dec, Type 2 diabetes mellitus without complication, without long-term current use of insulin E11.9 ; Benign essential hypertension I10 ; Bipolar 1 disorder F31.9 and Other hyperlipidemia E78.[address] [facility] [address] [id number], [place] [id number] Dec, [facility] [address] [id number], [place] [id number] Dec, Bipolar 1 disorder F31.9 ; Benign essential hypertension I10 and Other hyperlipidemia E78.[address] [facility] [address] [id number], [place] [id number] Nov, Bipolar 1 disorder F31.[address] [facility] [address] [id number], [place] [id number] Nov, [facility] [id number], [place] [id number] Nov, Acute recurrent maxillary sinusitis J01.01 and Benign essential hypertension I10 [facility] [address] [id number], [place] [id number] Oct, Body aches R52 and Influenza A J10.[address] [facility] [address] [id number], [place] [id number] Oct, [facility] [address] [id number], [place] [id number] Oct, [facility] [address] [id number], [place] [id number] Sep, [facility] [address], [place] [address] Sep, [facility] [address] [place] [id number] [place] [address] Sep, [address] [id number], [place] [id number] Sep, Other hyperlipidemia E78.4 and Hypothyroidism, unspecified type E03.[address] [id number], [place] [id number] Sep, Benign essential hypertension I10 [address] [id number], [place] [id number] Sep, [address] [id number], [place] [id number] Sep, Type 2 diabetes mellitus without complication, without long-term current use of insulin E11.9 ; Hypothyroidism, unspecified type E03.9 ; Bipolar 1 disorder F31.9 ; Obesity (BMI 30.0-34.9) E66.9 ; Benign essential hypertension I10 and Other hyperlipidemia E78.4 [place] [address] [place] [address] Aug, [place] [address] [place] [id number] [place] [address] Aug, [place] [address] [place] [address] Jul, IMMUNIZATIONS No Known Immunizations SOCIAL HISTORY Never Assessed REASON FOR VISIT Nicombalta note PLAN OF CARE VITAL SIGNS MEDICATIONS Unknown [...] in left leg 2000 Hospitalization History HTN- [facility] 09/2017
--- NOTE | 2018-03-20 10:42 | Ophthalmologist Pre-Op Note ---
Pre-Operative Progress Note H&P Reviewed The H&P was reviewed, patient examined and no changes noted. Date H&P Reviewed: Mar 20, 2018 Time H&P Reviewed: 10:42 Pre-Op Dx Cataract, Left Eye BOLIVAR SHINE MD Mar 20, 2018 10:42
[2018-03-20] MEDS ORDERED: MIDAZOLAM 2 MG/2 ML (VERSED) VIAL ONE (10:49)
--- NOTE | 2018-03-20 11:09 | Ophthalmology Operative Report ---
Cataract removal/placement IOL PREOPERATIVE DIAGNOSIS: Cataract Left Eye POSTOPERATIVE DIAGNOSIS: Cataract Left Eye PROCEDURE: Cataract removal and placement of posterior chamber implant, left eye SURGEON: Asif Shine ANESTHESIA: Topical with sedation COMPLICATIONS: None ESTIMATED BLOOD LOSS: Minimal DESCRIPTION OF PROCEDURE: After proper informed consent was obtained, the patient, a 67 female, was taken to the Operating Room and the left eye was anesthetized with tetracaine. The left eye was then prepped and draped in the usual manner. A wire lid speculum was placed. A paracentesis was made at the left hand position. Preservative free lidocaine was injected into the anterior chamber followed by viscoelastic. A clear corneal incision was made in the temporal position. A capsulorrhexis was preformed and the central nuclear and cortical material were removed. The posterior capsule was polished and an Reese 25.0 SN6CWS IOL was placed into the capsular bag. The residual viscoelastic was aspirated and balanced saline solution was injected into the anterior chamber. 0.1 ml of Vancomycin (1mg/0.1ml ) was injected into the anterior chamber. The wound was checked and found to be water tight. The patient tolerated the procedure well without complications. ASIF SHINE MD Mar 20, 2018 11:08
[2018-03-20 11:25] VITALS: BP 142/78
--- NOTE | 2018-03-20 13:41 | Anesthesia-General Post-Op ---
MAC Patient Condition Mental Status/LOC: Same as Preop Cardiovascular: Satisfactory Nausea/Vomiting: Absent Respiratory: Satisfactory Pain: Controlled Complications: Absent Post Op Complications Complications None Follow Up Care/Instructions Patient Instructions None needed. Anesthesiology Discharge Order Discharge Order Patient was doing well after surgery, no complaints, stable vital signs, no apparent adverse anesthesia problems. KARL TURNER DO Mar 20, 2018 13:41
== END 2018-03-20 11:25 | disposition home or self-care (01) ==
LOC: SDC 08:39
PROVIDERS: ATTEND Specialist
DX: E11.36 Type 2 diabetes mellitus with diabetic cataract (principal); I10 Essential (primary) hypertension; J44.9 Chronic obstructive pulmonary disease, unspecified; Z79.899 Other long term (current) drug therapy
CPT/HCPCS: 82962

== ENCOUNTER → 2020-04-11 | Outpatient (CLI) | payer MEDICARE, MEDICAID ==
[~2020-04-11] MED LIST changes: -AMLO5TAB2 PO; +AMLO5TAB9 PO; -DULO30CA48 PO; +DULO30CA49 PO; -GLIM2TAB PO; +GLIM2TAB4 PO; -LAMO100T PO; +LAMO100T5 PO; -LAMO25TA PO; +LAMO25TA8 PO; -MECL-106 PO; +MECL-149 PO; -ROSU20TA30 PO; +ROSU20TA32 PO
== END ==
LOC: CARD 13:19
PROVIDERS: ATTEND Nurse Practitioner Family
DX: I25.118 Atherosclerotic heart disease of native coronary artery with other forms of angina pectoris (principal); I10 Essential (primary) hypertension; E78.49 Other hyperlipidemia
CPT/HCPCS: 93306

== ENCOUNTER → 2020-09-14 | Outpatient (CLI) | payer MEDICARE, MEDICAID ==
[~2020-09-14] MED LIST changes: +AMLO-250 PO; -AMLO5TAB9 PO; +RT-ALBUTEROL SULF 2.5 MG/3 ML PRE-MIX VIAL INH ONE
== END ==
LOC: RT 15:30
PROVIDERS: ATTEND Nurse Practitioner Family
DX: J44.9 Chronic obstructive pulmonary disease, unspecified (principal)
CPT/HCPCS: 94060; 94726; 94729

== ENCOUNTER → 2020-12-22 | Outpatient (CLI) | payer MEDICARE, MEDICAID ==
[~2020-12-22] MED LIST changes: +GADOBUTROL 7.5 MMOL/7.5 ML (GADAVIST) VIAL IV ONE; -LISI40TA PO; +LISI40TA9 PO; -RT-ALBUTEROL SULF 2.5 MG/3 ML PRE-MIX VIAL INH ONE
--- NOTE | 2020-12-22 16:57 | Diagnostic Imaging Report ---
PROCEDURE: MR imaging of the brain with and without contrast. TECHNIQUE: Multiplanar, multisequence MR imaging of the brain was performed with and without contrast. INDICATION: Resting tremor, hearing loss. COMPARISON: Correlated with head CT October 2011. No prior MR. FINDINGS: There is substantial subcortical and periventricular white matter disease, T2 hyperintense and best seen on the FLAIR weighted pulse sequences and when differing modalities taken into account is not convincingly changed from the head CT of 2012. No evidence for cerebral edema. Similar white matter changes in the david also are not convincingly changed. No mass or mass effect. No cerebral edema. No evidence for elevated intracranial pressures. There is no hemorrhage. There are no foci of abnormal diffusion restriction. After contrast was administered no abnormal parenchymal or meningeal enhancement. There is normal enhancement of the major dural venous sinuses. There is no evidence for elevated intracerebral pressures. No cerebellopontine angle mass or mass effect is found. IMPRESSION: Substantial but unchanged chronic white matter disease favored to reflect small vessel sequelae. No findings of infarct, hemorrhage, edema or acute appearing pathology. No mass. Dictated by: Dictated on workstation # [id number]
== END ==
LOC: RAD 13:45
PROVIDERS: ATTEND Nurse Practitioner Family
DX: G25.2 Other specified forms of tremor (principal); H91.90 Unspecified hearing loss, unspecified ear; R90.82 White matter disease, unspecified
CPT/HCPCS: 70553

== ENCOUNTER → 2021-05-15 | Outpatient (CLI) | payer MEDICARE, MEDICAID ==
[~2021-05-15] MED LIST changes: -GADOBUTROL 7.5 MMOL/7.5 ML (GADAVIST) VIAL IV ONE
--- NOTE | 2021-05-15 15:21 | Diagnostic Imaging Report ---
INDICATION: Routine screening. COMPARISON: 07/18/2009 and 09/06/2008. TECHNIQUE: 2D and 3D bilateral screening mammography was performed with CAD. FINDINGS: Both breasts remain heterogeneously dense, limiting the sensitivity of mammography. The right breast appears stable. There is an enlarging circumscribed density in the upper central left breast. This may represent an enlarging cyst. Additional views are recommended for further evaluation. No other masses are identified. There are scattered benign calcifications. No malignant-appearing microcalcifications are seen. The axillae are unremarkable. IMPRESSION: Left breast density. Additional views are recommended for further evaluation. ACR BI-RADS Category 0: Incomplete. (Needs additional imaging evaluation). Result letter will be mailed to the patient. Note: At least 10% of breast cancer is not imaged by mammography. Dictated by: Dictated on workstation # [id number]
--- NOTE | 2021-05-15 15:48 | Diagnostic Imaging Report ---
INDICATION: Postmenopausal screening COMPARISON: 07/18/2009 FINDINGS: AP Spine L1-L4: [BMD (g/cm2): 09.901] [T-Score: -2.5] [Z-Score: -1.4] [BMD Previous: 0.925] [BMD % Change: -2.6] LT Hip Neck: [BMD (g/cm2): 0.776] [T-Score: -1.9] [Z-Score: -0.5] LT Hip Total: [BMD (g/cm2):0.798] [T-Score:-1.7] [Z-Score: -0.6] [BMD Previous: 0.832] [BMD % Change: -4.1] RT Hip Neck: [BMD (g/cm2):0.742] [T-Score:-2.1] [Z-Score:-0.8] RT Hip Total: [BMD (g/cm2):0.763] [T-score:-1.9] [Z-Score:-0.8] [BMD Previous:0.830] [BMD % Change:-8.1] *Indicates significant change from prior examination based on 95% confidence level. World Health Organization criteria for BMD interpretation classify patients as Normal (T-score at or above -1.0), Osteopenic (T-score between -1.0 and -2.5) or Osteoporotic (T-score at or below -2.5). LIMITATIONS AND MODIFICATION: None. FRACTURE RISK (FRAX SCORE): The ten year probability of (%): Major Osteoporotic Fracture: [18.3] Hip Fracture: [3.7] IMPRESSION: 1. Osteopenia (Low bone mass). 2. No significant change in bone mineral density since prior examination. 3. See below National Osteoporosis Foundation guidelines on when to potentially initiate pharmacologic therapy. Based on the National Osteoporosis Foundation Guidelines, pharmacologic treatment should be initiated in any of the following, unless clinical conditions suggest otherwise: * Any patient with prior fragility fracture of the hip or vertebrae. A spine fracture indicates 5X risk for subsequent spine fracture and 2X risk for subsequent hip fracture. * Osteoporosis (T-score <-2.5). * Postmenopausal women and men age 50 and older with low bone mass/osteopenia (T-score between -1.0 and -2.5) by DXA and 10-year major osteoporotic fracture greater than 20% or a 10-year probability of hip fracture greater than 3%. These fracture risks are supplied above in the FRAX score, if applicable. * Clinician judgement and/or patient preferences may indicate treatment for people with 10-year fracture probabilities above or below these levels. Dictated by: Dictated on workstation # [id number]
== END ==
LOC: RAD 13:30
PROVIDERS: ATTEND Nurse Practitioner Family
DX: Z12.31 Encounter for screening mammogram for malignant neoplasm of breast (principal); Z13.820 Encounter for screening for osteoporosis; M85.80 Other specified disorders of bone density and structure, unspecified site; Z78.0 Asymptomatic menopausal state
CPT/HCPCS: 77063; 77067; 77080

== ENCOUNTER → 2021-06-08 | Outpatient (CLI) | payer MEDICARE, MEDICAID ==
--- NOTE | 2021-06-08 17:36 | Diagnostic Imaging Report ---
INDICATION: Left breast nodule. COMPARISON: Correlation is made with diagnostic mammogram from earlier the same day and screening mammogram from 05/15/2021. EXAMINATION: Sonographic interrogation of the upper left breast was performed. FINDINGS: There is a cyst with some minimal internal debris at the 12:00 location, 5 cm from the nipple measuring 7 mm x 6 mm x 7 mm. There is a cyst at the 12:30 location, 4 cm from the nipple measuring 10 mm x 3 mm x 6 mm. No solid or concerning abnormality is seen. IMPRESSION: Benign nodules at the 12:00 and 12:30 location of the left breast, likely accounting for the mammographic density. Patient may return to routine annual screening mammography. ACR BI-RADS Category 2: Benign findings. Result letter will be mailed to the patient. Note: At least 10% of breast cancer is not imaged by mammography. Dictated by: Dictated on workstation # [id number]
--- NOTE | 2021-06-08 17:38 | Diagnostic Imaging Report ---
INDICATION: Left breast density. Patient presents for additional views. COMPARISON: Correlation is made prior screening mammogram from 05/15/2021. EXAMINATION: Unilateral left 2D and 3D diagnostic mammography was performed with CAD. This included spot compression CC and ML views as well as conventional 90 degrees lateral views. FINDINGS: There is a persistent fairly well circumscribed nodule in the upper left breast, approximately 12:00 location, 7 cm from the nipple. Further evaluation with ultrasound is recommended. IMPRESSION: Circumscribed nodule 12:00 location left breast, 7 cm from the nipple. Further evaluation with ultrasound is recommended and will be performed today. ACR BI-RADS Category 0: Incomplete. (Needs additional imaging evaluation). Result letter will be mailed to the patient. Note: At least 10% of breast cancer is not imaged by mammography. Dictated by: Dictated on workstation # [id number]
== END ==
LOC: RAD 12:49
PROVIDERS: ATTEND Nurse Practitioner Family
DX: N63.20 Unspecified lump in the left breast, unspecified quadrant (principal)
CPT/HCPCS: 76642; 77065; G0279